=== PATIENT | male | born 1980 | race Hispanic/Latino ===

== ENCOUNTER 2017-09-28 17:19 | Emergency (ER) | payer SELFPAY ==
[2017-09-28] MEDS ORDERED: MORPHINE SULFATE 4 MG/1ML SYG ONE (17:51)
[2017-09-28] MEDS ORDERED: ONDANSETRON HCL 4 MG/2 ML VIAL ONE (17:51)
== END 2017-09-28 18:30 | disposition home or self-care (01) ==
LOC: EDH 17:19
DX: K40.90 Unilateral inguinal hernia, without obstruction or gangrene, not specified as recurrent (principal); Z72.0 Tobacco use
CPT/HCPCS: 99284; J2270; J2405